=== PATIENT | female | born 1955 | race Caucasian/White ===

== ENCOUNTER 2019-08-28 00:54 | Emergency (ER) | payer OTHER | END 2019-08-28 02:20 | disposition home or self-care (01) | LOC: ERS 00:54 | DX: T49.8X1A Poisoning by other topical agents, accidental (unintentional), initial encounter (principal); L25.3 Unspecified contact dermatitis due to other chemical products; I49.9 Cardiac arrhythmia, unspecified; I48.91 Unspecified atrial fibrillation; J45.909 Unspecified asthma, uncomplicated; Z79.899 Other long term (current) drug therapy | CPT/HCPCS: 99282 ==